=== PATIENT | female | born 1995 | race Two or more races ===

== ENCOUNTER 2023-09-23 07:51 | Emergency (ER) | payer OTHER ==
[~2023-09-23] VITALS: Ht 152.4 cm; Wt 72.6 kg
[2023-09-23 10:25] LABS: PH,URINE 8.5 (5.0-8.0); URINE APPEARANCE Clear; URINE BILIRRUBIN Negative (NEGATIVE); URINE BLOOD Negative; URINE COLOR Yellow; URINE GLUCOSE Negative (NEGATIVE); URINE LEUKOCYTE Negative; URINE NITRATE Negative; URINE PROTEIN Trace (NEGATIVE)
[2023-09-23 10:26] LABS: URINE EPITHELIAL CELLS 53.4 uL (0.0-38.8); URINE RBC 14.2 uL (0.0-20.8); URINE WBC 14.2 uL (0.0-23.2)
[2023-09-23 10:39] LABS: HEMATOCRIT 36.7 % (36.0-45.00); HEMOGLOBIN 12.8 g/dL (12.0-15.00); MEAN CELL VOLUME 85.7 fL (80.00-100.00); MEAN CORPUSCULAR HEMOGLOBIN 29.9 pg (27.00-32.0); MEAN CORPUSCULAR HGB CONC 34.9 g/dl (32.0-36.0); PLATELET COUNT 373 K/uL (150-450); RED BLOOD COUNT 4.28 M/uL (4.00-6.00); RED CELL DISTRIBUTION WIDTH 14.1 % (11.5-14.5)
== END 2023-09-23 12:57 | disposition home or self-care (01) ==
LOC: ER 07:51
PROVIDERS: General Practice
DX: B34.9 Viral infection, unspecified (principal); Z20.822 Contact with and (suspected) exposure to COVID-19